=== PATIENT | male | born 2000 | race Caucasian/White ===

== ENCOUNTER 2021-11-24 20:09 | Emergency (ER) | payer SELFPAY ==
[~2021-11-24] VITALS: Ht 185.4 cm; Wt 68.3 kg
[2021-11-24 20:09] VITALS: BP 108/68
== END 2021-11-24 22:15 | disposition left against medical advice (07) ==
LOC: M ED 20:09
DX: Z53.21 Procedure and treatment not carried out due to patient leaving prior to being seen by health care provider (principal)